=== PATIENT | male | born 1975 | race Caucasian/White ===

== ENCOUNTER 2022-03-10 10:03 | Emergency (ER) | payer BC, SELFPAY ==
--- NOTE | 2022-03-10 10:24 | ED.URI ---
HPI - URI/Sore Throat General Chief Complaint: Upper Respiratory Infection Stated Complaint: sorethroat,chest congestion,bodyache Time Seen by Provider: 03/10/22 10:50 Source: patient and RN notes reviewed Mode of arrival: ambulatory Limitations: no limitations History of Present Illness HPI Narrative: 46-year-old male presents with concern for cough, body aches, sore throat, chest congestion. Reports symptoms started 4 days ago. Reports his mother is positive for COVID, he had a negative COVID test yesterday. Reports he was recently at his father's around many people. Reports he has been taking Tylenol for his symptoms. He denies nausea, vomiting, diarrhea, fever, shortness of breath MD elicited complaint: cough and sore throat Related Data Allergies Allergy/AdvReac Type Severity Reaction Status Date / Time Dairy Allergy Mild breathing Uncoded 03/10/22 10:47 problems Review of Systems Review of Systems: CONSTITUTIONAL: Reports malaise. Denies chills, sweats, or fever. EYES: Denies visual changes, redness, or discharge. ENT: Reports rhinorrhea, congestion, and sore throat. Reports sore throat CARDIOVASCULAR: Denies chest pain, palpitations, or edema. RESPIRATORY: Reports cough. Denies dyspnea. GASTROINTESTINAL: Denies abdominal pain, nausea, vomiting, diarrhea SKIN: Denies rash or itching. MUSCULOSKELETAL: Reports myalgia. NEUROLOGIC: Denies headache. All systems reviewed & are unremarkable except as noted in HPI and below [facility] Comments At time of signature, agree with nursing past medical, surgical, social and family history. There is no relevant family history pertinent to the presenting complaint Exam Narrative: GENERAL: Nontoxic-appearing and in no acute distress. HEAD: Normocephalic EYES: PERRLA, conjunctivae clear ENT: Nares clear, clear discharge. Mucous membranes moist. TM pearly brothers with sharp light reflex bilaterally; no tragal tenderness. Oropharynx not erythematous without lesions. Tonsils not enlarged and without exudate, no drooling, no hoarseness, no trismus, uvula midline. NECK: Supple. No lymphadenopathy CHEST: Clear to auscultation, breath sounds equal. No wheezing, rhonchi, rales, or stridor. No respiratory distress, speaks in full sentences. HEART: Regular rate and rhythm. No murmur heard. SKIN: Warm, dry, no rash. NEURO: Alert and oriented x3. PSYCH: Normal mood and affect Course Course Emergency Course: Patient is aware of diagnosis, understands and agrees to treatment plan. Anticipatory guidance given. Patient agrees to follow-up as directed and is aware of reasons to seek care at the emergency department. Portions of this record may have been created with voice recognition software Level of Care: Express Care Visit Vital Signs Vital signs: Reviewed. MDM - URI/Sore Throat MDM Narrative Medical decision making narrative: Differential diagnosis considered: Rodriguez virus, strep pharyngitis, allergic rhinitis, upper respiratory tract infection, sinusitis, rhinosinusitis, nasopharyngitis. viral pharyngitis, otitis media, otitis externa, pneumonia, bronchitis, viral cough syndrome, viral syndrome, and influenza. Exam findings show no acute concerns or changes; patient is non-toxic appearing and is in no distress. Patient is appropriate for outpatient treatment and follow-up. Lab Data Attestation: I reviewed the patient's lab results. Critical Care Time Critical Care Time Critical Care Time: No Discharge Plan Discharge Clinical Impression: Acute viral syndrome Patient Disposition: Home, Self-Care Condition: Stable Instructions: Viral Syndrome (ED) Additional Instructions: Your rapid strep swab was negative today at [facility]. A throat culture will be sent to the laboratory for further testing. If the test is positive, you will receive a phone call within 48 hours and an appropriate antibiotic will be initiated at that time. -Your symptoms are likely caused by a
[2022-03-10 10:35] VITALS: BP 150/79; PULSE 86; RESP 18; TEMP 37.6; O2SAT 99
== END 2022-03-10 11:21 | disposition home or self-care (01) ==
PROVIDERS: Emergency Provider Nurse Practitioner; PCP Family Medicine
DX: B34.9 Viral infection, unspecified (principal); Z20.822 Contact with and (suspected) exposure to COVID-19
CPT/HCPCS: 87081; 87426; 87880; 99213; C9803; G0463

== ENCOUNTER 2022-06-14 00:53 | Day surgery (SDC) | payer BC, SELFPAY ==
[2022-06-03 14:12] VITALS: BMI 22.5
[2022-06-14 06:50] VITALS: BP 128/84; PULSE 61; RESP 20; TEMP 36.3; O2SAT 100; BMI 22.6
[2022-06-14] MEDS: LACTATED RINGERS 1,000 ML 150 ML IV CONT (06:57)
--- NOTE | 2022-06-14 07:38 | P.PNAN_ITS ---
Anes - Initial Pre Proc Eval Procedure: Operation Date: 06/14/22 08:00 Proposed Procedures p Screening Colonoscopy - Fredrick Massey MD Date/Time: 06/14/22 07:38 Surgeon: Fredrick Massey MD Pre Op Diagnosis: neoplasm screening Patient Data Age: 47 Gender: M Height: 1.91 m Weight: 82 kg Last Vital Signs Temp 97.3 F L 06/14/22 06:50 Pulse 61 06/14/22 06:50 Resp 20 06/14/22 06:50 BP 128/84 06/14/22 06:50 Pulse Ox 100 06/14/22 06:50 O2 Del Method Room Air 06/14/22 06:50 Allergies Allergy/AdvReac Type Severity Reaction Status Date / Time Dairy Allergy Mild breathing Uncoded 06/14/22 06:46 problems Home Medications Medication Instructions Recorded Confirmed Type peg 3350-electrolytes 236 240 ml PO Q10M #4,000 mL 04/26/22 06/03/22 Rx gram-22.74 gram-6.74 gram-5.86 gram solution (Golytely) Patient hx anesthesia problems: none Family hx anesthesia problems: none Results Review: All pre-operative results and documents have been reviewed as part of the pre- operative evaluation. Anes - Eval Final PreProcedure Day of Procedure 06/14/22 07:38 Patient weight: normal Heart: regular rate and rhythm Lungs: clear to auscultation Airway: Mallampati scale class II Neurological: alert and oriented Last oral intake: >/= 8 hours ASA classification: I Emergent: no Anesthetic plan: proceed Anesthesia type and monitoring: general GIVS and standard monitoring Results Review: All pre-operative results and documents have been reviewed as part of the pre- operative evaluation. Informed Consent: The patient's anesthetic plan and its attendant risks and benefits were discussed with the patient/family/POA. Questions were solicited and answers provided to the satisfaction of the patient/family/POA.
--- NOTE | 2022-06-14 07:46 | P.HP_ITS ---
H&P: HPI History of Present Illness Date/Time: 06/14/22 07:46 Chief Complaint: Neoplasia screening. Narrative: This is a 47-year-old white male patient presents for screening colonoscopy. Patient reports his current weight appetite and bowel movements are normal. Patient denies abdominal pain. He has had no bleeding. Family history is significant for grandparent with colon cancer. Patient presents today for screening colonoscopy. Review of Systems Review of Systems: Review of systems noncontributory. Meds Home Medications and Allergies Home Medications Medication Instructions Recorded Confirmed Type peg 3350-electrolytes 236 240 ml PO Q10M #4,000 mL 04/26/22 06/03/22 Rx gram-22.74 gram-6.74 gram-5.86 gram solution (Golytely) Allergies Allergy/AdvReac Type Severity Reaction Status Date / Time Dairy Allergy Mild breathing Uncoded 06/14/22 06:46 problems Vital Signs Vital Signs - 24 hr 06/14/22 06:50 Temperature 97.3 F L Pulse Rate 61 Respiratory Rate 20 Blood Pressure 128/84 Pulse Oximetry 100 Oxygen Delivery Room Air Exam Narrative: Physical exam reveals patient to be alert. Vital signs stable. HEENT exam is unremarkable. Patient is anicteric. Lungs are clear to auscult ation and percussion. Heart is without murmur or extra sounds. Abdomen bowel sounds are present soft nontender with no organomegaly. Digital external rectal exam is normal. Assessment and Plan Assessment and plan (1) Encounter for screening colonoscopy: Code(s): Z12.11 - Encounter for screening for malignant neoplasm of colon Status: Acute Assessment and Plan: Patient presents today for screening colonoscopy. Plan further recommendations will be given after endoscopy.
[2022-06-14 08:14] VITALS: BP 120/79; PULSE 68; RESP 23; O2SAT 100
[2022-06-14 08:24] VITALS: BP 119/77; PULSE 76; RESP 22; O2SAT 100
[2022-06-14 08:34] VITALS: BP 121/82; PULSE 67; RESP 20; O2SAT 100
== END 2022-06-14 08:38 | disposition home or self-care (01) ==
PROVIDERS: PCP Family Medicine; Visit Provider Internal Medicine Gastroenterology
PROC: 0DJD8ZZ Inspection of Lower Intestinal Tract, Via Natural or Artificial Opening Endoscopic (ICD-10-PCS; CPT 45378; principal; 2022-06-14 08:00)
DX: Z12.11 Encounter for screening for malignant neoplasm of colon (principal)
CPT/HCPCS: 45378; J2704; J7120

== ENCOUNTER 2024-03-23 19:25 | Inpatient (IN) | payer BC, SELFPAY ==
[2024-03-23] VITALS (8 sets, daily range): BP systolic 146–170; BP diastolic 80–89; PULSE 51–59; RESP 13–20; TEMP 36.4–36.5; O2SAT 97–100
--- NOTE | ~2024-03-23 | XR_ITS ---
EXAMINATION: XR chest 2V Exam Date/Time: 03/23/2024 19:45 CDT HISTORY: cp INTERMITTENT X 1 WEEK WORSE WITH EXERTION Comparison: 04/08/2010. RESULT: Lines, tubes, and devices: None. Lungs and pleura: Clear. Cardiomediastinal silhouette: Stable. Other: No acute osseous or upper abdominal finding. IMPRESSION: No acute cardiopulmonary process. Reviewed, dictated and finalized at location K.
--- NOTE | 2024-03-23 19:26 | ECG_ITS ---
SEE SCANNED COPY FOR CONFIRMED REPORT MTDD
[2024-03-23 19:51] LABS: Basophils Absolute Auto 0.1 K/mm3 (0.0-0.1); Basophils Percent Auto 0.7 % (0.2-1.2); Eosinophils Absolute Auto 0.1 K/mm3 (0-0.3); Hematocrit 40.3 % (42.0-52.0); Immature Granulocyte Absolute 0.02 K/mm3 (0.00-0.031); Immature Granulocyte Percent A 0.3 % (0-0.5); Lymphocytes Absolute Auto 2.42 K/mm3 (0.9-3.2); Lymphocytes Percent Auto 35.4 % (18.3-44.2); Mean Corpuscular HGB Conc 34.7 g/dl (32-36); Mean Corpuscular Hemoglobin 30.6 pg (26-34); Monocytes Absolute Auto 0.6 K/mm3 (0.1-0.6); Monocytes Percent Auto 8.8 % (2.6-8.5); Neutrophils Absolute Auto 3.6 K/mm3 (1.3-6.7); Neutrophils Percent Auto 52.8 % (45.5-73.1); Platelet Count Result 272 k/mm3 (150-375); Red Blood Count 4.58 M/mm3 (4.6-6.20); Red Cell Distribution Width 12.5 % (11.5-14.5); White Blood Count 6.8 K/mm3 (4.5-10.0)
[2024-03-23 20:00] LABS: Alanine Aminotransferase 22 U/L (6-50); Albumin Level 4.6 g/dL (3.5-5.1); Alkaline Phosphatase 78 U/L (38-126); Anion Gap 9 mmol/L (4-12); Aspartate Amino Transferase 29 U/L (17-59); Bilirubin,Total 0.7 mg/dL (0.2-1.3); Blood Urea Nitrogen 13 mg/dL (9-20); Calcium 9.2 mg/dL (8.4-10.2); Carbon Dioxide 27 mmol/L (22-30); Chloride 103 mmol/L (98-107); Estimated CRCL calculation 79 ml/min; Estimated Glomerular Filt Rate > 60; Glucose 97 mg/dL (65-110); Lipase 159 U/L (23-300); Potassium 3.6 mmol/L (3.4-5.0); Sodium 139 mmol/L (137-145)
[2024-03-23 20:02] LABS: Prothrombin Time 13.8 Seconds (11.1-14.7)
[2024-03-23 20:03] LABS: Partial Thromboplastin Time 34.1 Seconds (22.3-36.8)
[2024-03-23 20:24] LABS: Troponin I 0.158 ng/mL (0.000-0.034)
--- NOTE | 2024-03-23 20:30 | ED.CHESTPAIN ---
HPI - Chest Pain General Chief Complaint: Chest Pain Stated Complaint: chest pain Time Seen by Provider: 03/23/24 20:30 History of Present Illness HPI narrative: Patient is a 48-year-old male with no significant past medical history here today with chest pain. Patient notes that over the last 1 week he has had episodic chest pain which seems to occur with exertion. He notes that it is present diffusely throughout his anterior chest and occasionally radiates into his left shoulder. Today just prior to arrival he attempted to go for a walk after dinner and started experiencing his chest pain once again, the pain seemed worse than it had been on previous episodes and this prompted him to come into the emergency department for evaluation. He denies any associated diaphoresis, nausea, lightheadedness. He notes chest tightness but does not feel short of breath. He denies any calf pain or leg swelling. No recent travel, no recent surgeries. No personal history of heart issues however his father did have a heart attack in his early 60s. He does admit that he has not seen a doctor for a couple of years but before that was having regular primary care visits. Related Data Allergies Allergy/AdvReac Type Severity Reaction Status Date / Time Dairy Allergy Mild breathing Uncoded 10/21/23 09:24 problems Review of Systems Review of Systems: All systems reviewed & are unremarkable except as noted in HPI and below Exam Narrative: GENERAL: Well-appearing, well-nourished, and in no acute distress. HEAD: Normocephalic, atraumatic. EYES: PERRLA and EOMI. ENT: Nares clear. Mucous membranes moist. NECK: Supple. CHEST: Clear to auscultation. No respiratory distress. HEART: Regular rate and rhythm. Normal peripheral pulses. ABDOMEN: Soft, nontender, nondistended. EXTREMITIES: Normal range of motion. No edema. No calf tenderness. SKIN: Warm, dry, no rash. NEURO: No focal deficits. Alert and oriented x3. PSYCH: Normal mood and affect. Course Course Emergency Course: Chart review performed, patient here with intermittent chest pressure x1 week, worse at the light exercise, pain radiates into his left arm occasionally, triage vitals show hypertension, otherwise within normal limits. CBC unremarkable, electrolytes within normal limits, creatinine is 1.2, no prior for comparison. Troponin is elevated at 0.158. Patient seen evaluated, nontoxic appearing, no active chest pain at this time. Concerning story for anginal pain throughout this week and he has now had an elevated troponin. EKG is reassuring. Will continue to trend troponins, repeat EKGs, will additionally send a D-dimer although this is low on my differentials. Will start heparin gtt. Patient is advised to notify us should his chest pain return. ASA given. Spoke with Dr. Damon who accepts the patient for admission. Spoke with Dr. Lugo from Cardiology who recommends statin and NPO at midnight along with aspirin and heparin. Vital Signs Vital signs: Vital Signs Temperature 97.6 F 03/23/24 19:36 Pulse Rate 58 L 03/23/24 19:36 Respiratory Rate 20 03/23/24 19:36 Blood Pressure 165/86 H 03/23/24 19:36 Pulse Oximetry 100 03/23/24 19:36 Oxygen Delivery Room Air 03/23/24 19:36 Temperature 97.6 F 03/23/24 19:36 Pulse Rate 56 L 03/23/24 23:02 Respiratory Rate 20 03/23/24 23:02 Blood Pressure 160/89 H 03/23/24 23:02 Pulse Oximetry 99 03/23/24 23:02 Oxygen Delivery Room Air 03/23/24 20:47 MDM - Chest Pain Lab Data 03/23/24 19:36 03/23/24 19:36 Labs: Lab Results 03/23/24 Range/Units 19:36 WBC 6.8 (4.5-10.0) K/mm3 RBC 4.58 L (4.6-6.20) M/mm3 Hgb 14.0 (14.0-18.0) g/dL Hct 40.3 L (42.0-52.0) % MCV 88.0 (80-100) fl MCH 30.6 (26-34) pg MCHC 34.7 (32-36) g/dl RDW 12.5 (11.5-14.5) % Plt Count 272 (150-375) k/mm3 MPV 10.0 (7.4-10.4) fl Immature Gran % (Auto) 0.3 (0-0.5)
[2024-03-23] MEDS: ASPIRIN 81 MG CHEWABLE TABLET 324 MG PO (20:38)
[2024-03-23] MEDS: HEPARIN SODIUM 5,000 UNITS/ML VIAL 4000 UNITS IV PUSH (21:33)
[2024-03-23] MEDS: HEPARIN SOD/D5W 100 UNITS/ML 25,000 UNITS/250 ML BAG 10 UNITS IV CONT (21:33)
[2024-03-23 21:48] LABS: D Dimer 0.38 ug/mL (<0.48)
[2024-03-23] MEDS: ATORVASTATIN 20 MG TABLET PO (23:01)
[2024-03-23 23:10] LABS: Troponin I 0.225 ng/mL (0.000-0.034)
--- NOTE | 2024-03-23 23:26 | ADMGEN ---
This patient, Albert Dumont Jr., was admitted to IMU Room 200-01. Patient/family oriented to hospital policies and general routines including ID bracelet, bed and alarms, visiting hours, pain management, procedures, bathroom and other care routines, personal items, smoking policy, room service/diet, and visiting hours. Information on how to activate the Rapid Response Team has been discussed. Patient/Family are encouraged to report perceived risks to care and to ask questions if they do not understand what they are told or what they should do.
[2024-03-24] VITALS (31 sets, daily range): BP systolic 127–164; BP diastolic 60–95; PULSE 45–81; RESP 14–20; TEMP 36.1–37; O2SAT 93–100; BMI 23.3
[2024-03-24 01:54] LABS: Cholesterol 165 mg/dL (0-200); HDL Direct 33 mg/dL; Triglycerides 354 mg/dL (<150)
[2024-03-24 02:05] LABS: LDL Cholesterol Direct 87 mg/dL
[2024-03-24 02:20] LABS: Troponin I 0.283 ng/mL (0.000-0.034)
[2024-03-24 03:51] LABS: Basophils Percent Auto 0.6 % (0.2-1.2); Eosinophils Absolute Auto 0.2 K/mm3 (0-0.3); Hematocrit 38.4 % (42.0-52.0); Hemoglobin 13.1 g/dL (14.0-18.0); Immature Granulocyte Absolute 0.02 K/mm3 (0.00-0.031); Immature Granulocyte Percent A 0.3 % (0-0.5); Lymphocytes Absolute Auto 2.53 K/mm3 (0.9-3.2); Lymphocytes Percent Auto 37.8 % (18.3-44.2); Mean Corpuscular HGB Conc 34.1 g/dl (32-36); Mean Corpuscular Hemoglobin 29.7 pg (26-34); Mean Corpuscular Volume 87.1 fl (80-100); Mean Platelet Volume 10.1 fl (7.4-10.4); Monocytes Absolute Auto 0.5 K/mm3 (0.1-0.6); Monocytes Percent Auto 7.9 % (2.6-8.5); Neutrophils Absolute Auto 3.4 K/mm3 (1.3-6.7); Neutrophils Percent Auto 50.4 % (45.5-73.1); Platelet Count Result 238 k/mm3 (150-375); Red Blood Count 4.41 M/mm3 (4.6-6.20); Red Cell Distribution Width 12.4 % (11.5-14.5); White Blood Count 6.7 K/mm3 (4.5-10.0)
[2024-03-24 04:03] LABS: Partial Thromboplastin Time 87.7 Seconds (22.3-36.8)
--- NOTE | 2024-03-24 06:00 | ECHO_ITS ---
Patient Info Name: Albert Dumont Age: 48 years : 1975 Gender: Male Ht: 75 in Wt: 189 lbs BSA: 2.13 m2 HR: 52 bpm BP: 150 / 60 mmHg Heart Rhythm: Sinus Rhythm Technical Quality: Good Exam Date: 03/24/2024 8:08 AM Exam Location: Echo Lab Patient Status: Inpatient Admit Date: 03/23/2024 Staff Ordering Physician: Lorie Cast MD Water Filterer: Jonatan Morton RDCS Attending Provider: Lisa Damon DO Exam Type: CA echo doppler color flow Study Info Indications I21.4 - Non-ST elevation (NSTEMI) myocardial infarction Complete two-dimensional, color flow and Doppler transthoracic echocardiogram is performed. Summary 1. Complete two-dimensional, color flow and Doppler transthoracic echocardiogram is performed. 2. Left ventricular chamber dimension is normal. 3. Left ventricular systolic function is normal, estimated at 55-60%. 4. There is mildly increased left ventricular wall thickness. 5. The left ventricular diastolic function is normal. 6. The basal inferoseptal, and mid inferoseptal are hypokinetic. 7. There is mild aortic valve regurgitation. 8. There is mild mitral valve regurgitation. 9. There is mild tricuspid valve regurgitation. Left Ventricle Left ventricular chamber dimension is normal. Left ventricular systolic function is normal, estimated at 55-60%. There is mildly increased left ventricular wall thickness. The left ventricular diastolic function is normal. The basal inferoseptal, and mid inferoseptal are hypokinetic. All other gamez appear normal. Right Ventricle Right ventricular chamber dimension is normal. Right ventricular systolic function is normal. Left Atria Left atrial chamber dimension is normal. Right Atria Right atrial chamber dimension is normal. Atrial Septum Intact interatrial septum visualized by color flow imaging. Aortic Valve The aortic valve is trileaflet. There is mild aortic valve sclerosis. There is no aortic valve stenosis. There is mild aortic valve regurgitation. Pulmonic Valve The pulmonic valve is normal. There is no pulmonic valve stenosis. There is trace pulmonic regurgitation. Mitral Valve The mitral valve has normal leaflets. There is no mitral valve stenosis. There is mild mitral valve regurgitation. Tricuspid Valve The tricuspid valve leaflets are normal. There is no significant tricuspid valve stenosis. There is mild tricuspid valve regurgitation. No pulmonary hypertension, estimated pulmonary arterial systolic pressure is 12 mmHg. Pericardium/Pleural The pericardium appears normal. There is no pericardial effusion. Inferior Vena Cava Normal inferior vena cava with >50% collapse upon inspiration consistent with normal right atrial pressure, 5 mmHg. Aorta The aortic root size at the sinus of Valsalva is normal. Left Ventricular Outflow Tract Name Value Normal LVOT 2D LVOT Diameter 2.1 cm LVOT Doppler LVOT Peak Gradient 7 mmHg LVOT Mean Gradient 4 mmHg LVOT VTI 27 cm LVOT VTI/AV VTI Ratio 1.0 LVOT Stroke Volume 88 ml LVOT CO
[2024-03-24 10:21] LABS: Partial Thromboplastin Time 65.4 Seconds (22.3-36.8)
[2024-03-24 10:35] LABS: Hemoglobin A1C 5.2 % (<5.7)
--- NOTE | 2024-03-24 10:39 | PM.IMHP ---
H&P: HPI History of Present Illness Date/Time: 03/24/24 10:39 Chief Complaint: Chest pain Narrative: A pleasant 48-year-old male with no past medical history. Last saw PCP couple years ago. Reports tightness in the chest which is exacerbated by exertion and relieved by rest. Occasionally radiates to his left shoulder. Denies acid reflux denies shortness of breath diaphoresis nausea or lightheadedness. Father had a heart attack in his 60s. Denies smoking or alcohol use. Denies illicit drug use. Review of Systems Review of Systems: All systems reviewed & are unremarkable except as noted in HPI and below (Subjective) [facility] Social History Social History (System 10/21/23 @ 09:24 by Ronnie Ly) Smoking status: Never smoker Alcohol intake: current Drinks per week: 1 Substance use: never Substance use type: does not use Do You Feel Safe in your Home?: Yes Lack of Transportation: No Lack of Food: Never True Current Housing: I Have Housing Concerned About Future Housing: No Difficulty Paying Gas/Electric Bills: No Difficulty Paying for Meds: No Currently Unemployed: No Education: Master's Degree or Higher Difficulty w/ Childcare or Family Care: No Spiritual care concerns: No Meds Home Medications and Allergies Home Medications Medication Instructions Recorded Confirmed Type No Home Medications 03/24/24 03/24/24 History Allergies Allergy/AdvReac Type Severity Reaction Status Date / Time Dairy Allergy Mild breathing Uncoded 10/21/23 09:24 problems Vital Signs Vital Signs - 24 hr 03/23/24 19:36 03/23/24 20:47 03/23/24 20:35 Temperature 97.6 F Pulse Rate 58 L 51 L Respiratory Rate 20 18 Blood Pressure 165/86 H 167/80 H Pulse Oximetry 100 98 100 Oxygen Delivery Room Air Room Air 03/23/24 21:30 03/23/24 22:10 03/23/24 22:32 Temperature Pulse Rate 59 L 52 L 53 L Respiratory Rate 15 18 13 Blood Pressure 162/89 H 150/80 H 146/82 H Pulse Oximetry 100 99 98 Oxygen Delivery 03/23/24 23:02 03/23/24 23:12 03/24/24 00:00 Temperature 97.7 F Pulse Rate 56 L 57 L 46 L Respiratory Rate 20 20 Blood Pressure 160/89 H 170/83 H Pulse Oximetry 99 97 Oxygen Delivery 03/24/24 01:26 03/24/24 04:00 03/24/24 04:00 Temperature Pulse Rate 48 L 45 L 45 L Respiratory Rate 20 Blood Pressure Pulse Oximetry 97 Oxygen Delivery Room Air 03/24/24 04:00 03/24/24 05:42 03/24/24 07:44 Temperature 97.0 F L 98.1 F Pulse Rate 48 L 52 L 58 L Respiratory Rate 20 19 Blood Pressure 150/60 H 127/76 Pulse Oximetry 100 99 Oxygen Delivery 03/24/24 08:00 03/24/24 08:00 03/24/24 10:00 Temperature Pulse Rate 57 L 52 L Respiratory Rate Blood Pressure Pulse Oximetry Oxygen Delivery Room Air Exam Const: General: comfortable and no acute distress Other: A&O x3 Eyes: Pupils: Equal, round and reactive pupils present Neck: Neck: supple Resp: Effort & Inspection: normal respiratory effort Auscultation: clear to auscultation bilaterally Cardio: Rate: regular rate Rhythm: regular rhythm Heart sounds: no gallops, no murmurs and no rubs Other: No reproducible chest pain GI: GI Palp: Yes Soft to palpation and No Tenderness to palpation present (GI) Extrem: General: no edema H&P: Results Labs Labs: Short CBC 03/23/24 03/24/24 Range/Units 19:36 03:40 WBC 6.8 6.7 (4.5-10.0) K/mm3 Hgb 14.0 13.1 L (14.0-18.0) g/dL Hct 40.3 L 38.4 L (42.0-52.0) % Plt Count 272 238 (150-375) k/mm3 BMP 03/23/24 19:36 Sodium 139 Potassium 3.6 Chloride 103 Carbon Dioxide 27 BUN 13 Creatinine 1.20 Glucose 97 Calcium 9.2 Cardiac Enzymes 03/23/24 03/23/24 03/24/24 Range/Units 19:36 22:21 01:36 Troponin I 0.158 H* 0.225 H* D 0.283 H* D (0.000-0.034) ng/mL Liver Function 03/23/24 Range/Units 19:36 Total Bilirubin 0.7 (0.2-1.3) mg/dL AST 29
[2024-03-24] MEDS: ASPIRIN 81 MG ENTERIC TABLET PO (10:57)
[2024-03-24] MEDS: ATORVASTATIN 40 MG TABLET 80 MG PO (10:57)
[2024-03-24] MEDS: HEPARIN SODIUM 5,000 UNITS/ML VIAL 3500 UNITS IV PUSH (10:58)
--- NOTE | 2024-03-24 14:13 | WPDMODSED ---
Moderate Sedation Note-Pt Data Patient Data Diagnosis: NSTEMI Present Complaint: NSTEMI Procedure to be performed/Plan: Coronary angiography, left heart cath, +/- PCI Allergies Allergy/AdvReac Type Severity Reaction Status Date / Time Dairy Allergy Mild breathing Uncoded 10/21/23 09:24 problems Home Medications Medication Instructions Recorded Confirmed Type No Home Medications 03/24/24 03/24/24 History Current Medications: Active Medications Aspirin (Aspirin 81 Mg Enteric Tablet) 81 mg PO QAM [facility] Last Admin: 03/24/24 10:57 Dose: 81 mg Atorvastatin Calcium (Atorvastatin 40 Mg Tablet) 80 mg PO DAILY [facility] Last Admin: 03/24/24 10:57 Dose: 80 mg Heparin Sodium (Porcine) (Heparin Sodium 5,000 Units/Ml Vial) 4,000 units IV PUSH PRN PRN PRN Reason: aPTT less than 55 seconds Heparin Sodium (Porcine) (Heparin Sodium 5,000 Units/Ml Vial) 3,500 units IV PUSH PRN PRN PRN Reason: aPTT 55 - 70 seconds Last Admin: 03/24/24 10:58 Dose: 3,500 units Heparin Sodium/Dextrose (Heparin Sodium/D5w 100 Units/Ml) 25,000 units in 250 mls @ 12 mls/hr IV CONT .[id number] [facility]; Protocol Last Titration: 03/24/24 12:34 Dose: 1,200 units/hr, 12 mls/hr Perflutren Lipid Microsphere (Perflutren Lipid Microspheres 1.5 Ml Vial Diluted To 10 Ml Total Volume) 0 ml IV PUSH ONCE PRN; Protocol PRN Reason: adequate visualization Stop: 03/26/24 22:31 Sedation/Anesthesia: No previous sedation/anesthesia problems (including family history). [facility] Social History Social History Smoking status: Never smoker Alcohol intake: current Drinks per week: 1 Substance use: never Substance use type: does not use Do You Feel Safe in your Home?: Yes Lack of Transportation: No Lack of Food: Never True Current Housing: I Have Housing Concerned About Future Housing: No Difficulty Paying Gas/Electric Bills: No Difficulty Paying for Meds: No Currently Unemployed: No Education: Master's Degree or Higher Difficulty w/ Childcare or Family Care: No Spiritual care concerns: No Mod Sed Physical Exam Physical Exam Pre Procedural Exam: Normal: Appearance, Lungs, Heart Rate, Heart Rhythm, Neuro Exam, Abdomen and Extremities Hours since solid foods: 12 Hours since liquid intake: 12 Mallampati Classification: class II Internal Medicine - PN: Obj Da Vital Signs Vital Signs: Vital Signs - 24 hr 03/23/24 19:36 03/23/24 20:47 03/23/24 20:35 Temperature 36.4 C Pulse Rate 58 L 51 L Respiratory Rate 20 18 Blood Pressure 165/86 H 167/80 H Pulse Oximetry 100 98 100 Oxygen Delivery Room Air Room Air 03/23/24 21:30 03/23/24 22:10 03/23/24 22:32 Temperature Pulse Rate 59 L 52 L 53 L Respiratory Rate 15 18 13 Blood Pressure 162/89 H 150/80 H 146/82 H Pulse Oximetry 100 99 98 Oxygen Delivery 03/23/24 23:02 03/23/24 23:12 03/24/24 00:00 Temperature 36.5 C Pulse Rate 56 L 57 L 46 L Respiratory Rate 20 20 Blood Pressure 160/89 H 170/83 H Pulse Oximetry 99 97 Oxygen Delivery 03/24/24 01:26 03/24/24 04:00 03/24/24 04:00 Temperature Pulse Rate 48 L 45 L 45 L Respiratory Rate 20 Blood Pressure Pulse Oximetry 97 Oxygen Delivery Room Air 03/24/24 04:00 03/24/24 05:42 03/24/24 07:44 Temperature 36.1 C L 36.7 C Pulse Rate 48 L 52 L 58 L Respiratory Rate 20 19 Blood Pressure 150/60 H 127/76 Pulse Oximetry 100 99 Oxygen Delivery 03/24/24 08:00 03/24/24 08:00 03/24/24 10:00 Temperature Pulse Rate 57 L 52 L Respiratory Rate Blood Pressure Pulse Oximetry Oxygen Delivery Room Air 03/24/24 11:13 03/24/24 12:00 03/24/24 12:00 Temperature 36.5 C Pulse Rate 55 L 76 Respiratory Rate 18 Blood Pressure 135/84 Pulse Oximetry 100 Oxygen Delivery Room Air Intake/Output Intake/Output: Intake & Output 03/21/24 03/22/24 03/23/24 03/24/24 23:59 23:59 23:59 23:59 I
--- NOTE | 2024-03-24 15:30 | PM.CNCAR ---
Assessment and Plan Assessment and plan (1) Non-ST elevation [place] (NSTEMI): Code(s): I21.4 - Non-ST elevation (NSTEMI) myocardial infarction Status: Acute Assessment and Plan: Given NSTEMI, recommended cardiac catheterization. Discussed procedure with the patient, including indication for procedure, procedure details, risks vs benefits, etc. Patient agreeable to proceed. Underwent C 03/24 which showed significant proximal LAD stenosis s/p successful PCI with СЕРГЕЙ x 1. Echocardiogram shows LVEF 55-60%, hypokinesis of the basal inferoseptum and mid inferoseptum. Patient loaded with ASA 324mg x 1. Continue ASA 81mg once daily indefinitely. Loaded with Brilinta 180mg x 1 in the laboratory veterinarian. Continue Brilinta 90mg BID for at least 1 year. Started on high-intensity statin. Referral to cardiac rehab placed. Anticipate discharge home tomorrow if doing well. Will arrange outpatient follow up with us. Recommendations and plan discussed with Hospitalist. History of Present Illness History of Present Illness Consult date/time: 03/24/24 15:30 Requesting physician: Lorie Cast MD Consult reason: chest pain Reason For Visit: NSTEMI Narrative: We are consulted for NSTEMI. This is a 48 year old male with no past medical history, does not take any medications at home who presented with exertional chest pain that has been occurring for the past week. Happens a few minutes after starting exertion, relieved with rest. Feels diffuse chest tightness with radiation to left shoulder. Father had [place] in his 60s. No tobacco use. No recreational drug use. Works as a software controls engineer. EKGs show sinus rhythm, incomplete right bundle branch block, T-wave inversions in the anterior leads. Troponins are elevated at 0.158, 0.225, 0.283. CXR negative. No prior EKGs available for comparison. He has been started on Heparin drip. Review of Systems Review of Systems: All systems reviewed & are unremarkable except as noted in HPI and below (HPI) [facility] Social History Social History Smoking status: Never smoker Alcohol intake: current Drinks per week: 1 Substance use: never Substance use type: does not use Do You Feel Safe in your Home?: Yes Lack of Transportation: No Lack of Food: Never True Current Housing: I Have Housing Concerned About Future Housing: No Difficulty Paying Gas/Electric Bills: No Difficulty Paying for Meds: No Currently Unemployed: No Education: Master's Degree or Higher Difficulty w/ Childcare or Family Care: No Spiritual care concerns: No Meds Home Medications and Allergies Home Medications Medication Instructions Recorded Confirmed Type No Home Medications 03/24/24 03/24/24 History Allergies Allergy/AdvReac Type Severity Reaction Status Date / Time Dairy Allergy Mild breathing Uncoded 10/21/23 09:24 problems Vital Signs Vital Signs - 24 hr 03/23/24 19:36 03/23/24 20:47 03/23/24 20:35 Temperature 36.4 C Pulse Rate 58 L 51 L Respiratory Rate 20 18 Blood Pressure 165/86 H 167/80 H Pulse Oximetry 100 98 100 Oxygen Delivery Room Air Room Air 03/23/24 21:30 03/23/24 22:10 03/23/24 22:32 Temperature Pulse Rate 59 L 52 L 53 L Respiratory Rate 15 18 13 Blood Pressure 162/89 H 150/80 H 146/82 H Pulse Oximetry 100 99 98 Oxygen Delivery 03/23/24 23:02 03/23/24 23:12 03/24/24 00:00 Temperature 36.5 C Pulse Rate 56 L 57 L 46 L Respiratory Rate 20 20 Blood Pressure 160/89 H 170/83 H Pulse Oximetry 99 97 Oxygen Delivery 03/24/24 01:26 03/24/24 04:00 03/24/24 04:00 Temperature Pulse Rate 48 L 45 L 45 L Respiratory Rate 20 Blood Pressure Pulse Oximetry 97 Oxygen Delivery Room Air 03/24/24 04:00 03/24/24 05:42 03/24/24 07:44 Temperature 36.1 C L 36.7 C Pulse Rate 48 L 52 L 58 L Respiratory Rate 20 19 Blood Pressure 150/60 H 127/76 Pulse Oximetry 100 99
--- NOTE | 2024-03-24 15:36 | WPDCARDPROC ---
Cardiac Cath Procedure Note Date of procedure:: 03/24/24 Performing physician:: CATHETERIZATION LABORATORY REPORT Procedure Date: 03/24/2024 Travel Services Professional: Dc Sahni M.D., [facility]? Referring Physician: Dc Sahni M.D. ? Anesthesia: Versed and Fentanyl were ordered and given in my presence at 14:12, procedure ended at 15:14. Supervision of nurse monitored moderate sedation with Versed and Fentanyl was provided for 62 minutes. Total of Versed 1mg and Fentanyl 50mcg were administered by the Quality Assurance RN Faiza Simpson. Pre-op Diagnosis: NSTEMI Post-op Diagnosis: 1. Significant proximal LAD stenosis s/p successful PCI with СЕРГЕЙ x 1 2. Left ventricular end-diastolic pressure of 15mmHg Procedure(s): 1. Moderate sedation 2. Ultrasound-guided access of the right radial artery 3. Coronary angiography 4. Left heart catheterization 5. IVUS of the LAD 6. PCI of the proximal LAD with 4.0mm x 18mm Orsiro СЕРГЕЙ (the proximal and mid portion of the stent post-dilated to 4.5mm). Access Site: Right radial artery Brief History and Clinical Indications: Patient is a 48 year old male who is referred for [facility] for NSTEMI. All risks, benefits and alternatives to left heart catheterization with or without percutaneous coronary intervention was discussed at length with the patient. Risk of complications including but not limited to bleeding, infection, arrhythmia, stroke, worsening kidney function, blood loss, groin hematoma, limb loss, emergency coronary artery bypass grafting, and even were discussed with the patient and all questions were answered. The patient understood and wished to proceed. Time out called, patient name, date of , medical record number, allergies, procedure performed, identify Travel Services Professional, patient and staff member concurred with accurate data, procedure carried on. Findings: LEFT HEART CATHETERIZATION FINDINGS: 1. Left main: The left main coronary artery is widely patent without any significant obstructive disease. 2. Left anterior descending: The ostium of the LAD has mild disease. The proximal LAD has a focal 90% stenosis. Distal to this lesion, there is mild disease. There is mild disease in the mid portion of the LAD. 3. Left circumflex: The left circumflex artery and the main marginal branches have mild luminal irregularities without any significant obstructive angiographic disease. The left circumflex is co-dominant. 4. Right coronary artery: The RCA has luminal irregularities without any significant obstructive angiographic disease. The RCA is co-dominant vessel. 5. Left ventricle: A. End-diastolic pressure 15 mmHg. B. LV gram deferred. C. No significant gradient across aortic valve on catheter pullback. Description of Procedure and PCI: Informed consent signed and placed in the chart. Patient transferred to microbiology lab analyst room. Prepped and draped in usual sterile fashion. 2% lidocaine injected subcutaneously in right wrist area. 22-gauge venipuncture catheter used to access the right radial artery under ultrasound guidance. 6-FR slender sheath placed in right radial artery. Nitroglycerine and Verapamil were given intraarterial through the sheath. Versacore wire advanced under fluoroscopy 5F Tig 4 diagnostic catheter engaged Left Main Coronary Artery. 5F Tig 4 diagnostic catheter engaged Right Coronary Artery Multiple orthogonal angiogram obtained and reviewed 5F Tig 4 diagnostic catheter crossed aortic valve to obtain LVEDP, LV angiogram deferred. Angiomax was used for anticoagulation. 6F CLS 3.0 guide catheter was used to intubate the left main. 0.014 [place] coronary wire was passed in to the distal LAD. The lesion was pre-dilated with a 2.5 mm x 15 mm balloon inflated to high FRANKIE. IVUS catheter advanced distal to the lesion, reference measurements obtained. A 4.0 mm x 18 mm infibondiro СЕРГЕЙ was successfully deployed into proximal LAD. Intracoronary NTG was administered. IVUS catheter advanced dis
--- NOTE | 2024-03-24 15:45 | ECG_ITS ---
[facility] [address] Test Date: 2024-03-24 Pat Name: Albert Dumont Department: Room: 200 Gender: M Grain Scooper: TOM : 1975 Requested By: Dc Osorio Order Number: [id number] Jesus MD: Nick Brice D.O. Measurements Intervals [place] Rate: 47 P: 59 CT: 173 QRS: 7 QRSD: 97 T: 31 QT: 490 QTc: 437 Interpretive Statements SINUS BRADYCARDIA INCOMPLETE RIGHT BUNDLE BRANCH BLOCK MODERATE T-WAVE ABNORMALITY, CONSIDER ANTERIOR ISCHEMIA ABNORMAL ECG No previous ECG available for comparison Electronically Signed On 03-25-2024 08:54:34 CDT by Nick Brice D.O.
[2024-03-24] MEDS: SODIUM CHLORIDE 0.9% IV 1,000 ML 125 ML IV CONT (18:15)
[2024-03-24] MEDS: ACETAMINOPHEN 325 MG TABLET 650 MG PO (18:50)
[2024-03-24] MEDS: TICAGRELOR 90 MG TABLET PO (21:04)
[2024-03-25] VITALS (10 sets, daily range): BP systolic 125–147; BP diastolic 67–76; PULSE 48–67; RESP 18; TEMP 36.4–36.8; O2SAT 96–98
[2024-03-25] MEDS: ACETAMINOPHEN 325 MG TABLET 650 MG PO (05:34)
[2024-03-25] MEDS: TICAGRELOR 90 MG TABLET PO (08:28)
[2024-03-25] MEDS: ATORVASTATIN 40 MG TABLET 80 MG PO (08:29)
[2024-03-25] MEDS: ASPIRIN 81 MG ENTERIC TABLET PO (08:29)
--- NOTE | 2024-03-25 09:25 | PM.PNCARD ---
Progress Note: A&P Assessment and Plan (1) Non-ST elevation [place] (NSTEMI): Code(s): I21.4 - Non-ST elevation (NSTEMI) myocardial infarction Status: Acute Assessment and Plan: Given NSTEMI, recommended cardiac catheterization. Discussed procedure with the patient, including indication for procedure, procedure details, risks vs benefits, etc. Patient agreeable to proceed. Underwent C 03/24 which showed significant proximal LAD stenosis s/p successful PCI with СЕРГЕЙ x 1. Echocardiogram shows LVEF 55-60%, hypokinesis of the basal inferoseptum and mid inferoseptum. Patient loaded with ASA 324mg x 1. Continue ASA 81mg once daily indefinitely. Loaded with Brilinta 180mg x 1 in the orthodontic laboratory technician. Continue Brilinta 90mg BID for at least 1 year. Started on high-intensity statin. Referral to cardiac rehab placed. Okay to discharge home. Will arrange outpatient follow up with us. Recommendations and plan discussed with Hospitalist. Subjective Date/time seen: 03/25/24 09:25 Interval history: Reason for visit: NSTEMI HPI: We are consulted for NSTEMI. This is a 48 year old male with no past medical history, does not take any medications at home who presented with exertional chest pain that has been occurring for the past week. Happens a few minutes after starting exertion, relieved with rest. Feels diffuse chest tightness with radiation to left shoulder. Father had [place] in his 60s. No tobacco use. No recreational drug use. Works as a embedded software manager. EKGs show sinus rhythm, incomplete right bundle branch block, T-wave inversions in the anterior leads. Troponins are elevated at 0.158, 0.225, 0.283. CXR negative. No prior EKGs available for comparison. He has been started on Heparin drip. Date of service 03/25: Feeling well this morning. Review of Systems Review of Systems: All systems reviewed & are unremarkable except as noted in HPI and below (HPI) Exam Const: General: comfortable and no acute distress HENMT: Mouth: Yes moist mucous membranes Eyes: General: appearance normal, both eyes and all related structures Sclera: sclerae normal Resp: Effort & Inspection: normal respiratory effort Cardio: Rate: regular rate Rhythm: regular rhythm Skin: General skin exam: normal color Neuro: Speech: normal speech Psych: Mental Status: mental status grossly normal Affect: normal affect Objective Data Vital Signs Vital Signs: Vital Signs - 24 hr 03/24/24 10:00 03/24/24 11:13 03/24/24 12:00 Temperature 36.5 C Pulse Rate 52 L 55 L 76 Respiratory Rate 18 Blood Pressure 135/84 Pulse Oximetry 100 Oxygen Delivery Fraction of Inspired Oxygen 03/24/24 12:00 03/24/24 14:00 03/24/24 15:35 Temperature 36.5 C Pulse Rate 79 46 L Respiratory Rate 16 Blood Pressure 128/79 Pulse Oximetry 98 Oxygen Delivery Room Air Room Air Fraction of Inspired Oxygen 03/24/24 19:20 03/24/24 15:45 03/24/24 16:00 Temperature Pulse Rate 55 L 48 L 56 L Respiratory Rate 18 16 14 Blood Pressure 164/89 H 138/80 141/82 H Pulse Oximetry 98 98 97 Oxygen Delivery Room Air Room Air Room Air Fraction of Inspired Oxygen 03/24/24 16:15 03/24/24 16:30 03/24/24 16:45 Temperature Pulse Rate 56 L 55 L 55 L Respiratory Rate 14 16 16 Blood Pressure 140/81 127/82 139/77 Pulse Oximetry 97 99 98 Oxygen Delivery Room Air Room Air Room Air Fraction of Inspired Oxygen 03/24/24 17:00 03/24/24 17:15 03/24/24 17:30 Temperature Pulse Rate 61 65 58 L Respiratory Rate 14 16 14 Blood Pressure 135/82 153/92 H 145/84 H Pulse Oximetry 99 99 99 Oxygen Delivery Room Air Room Air Room Air Fraction of Inspired Oxygen 03/24/24 17:45 03/24/24 18:00 03/24/24 18:15 Temperature Pulse Rate 64 68 64 Respiratory Rate 18 18 18 Blood Pressure 131/89 147/94 H 149/90 H Pulse Oximetry 99 98 99 Oxygen Delivery Room Air Room Air Room Air Fraction of Inspired Oxygen 03/24/24 18:30 03/24/24 18:45
--- NOTE | 2024-03-25 09:39 | PM.DS ---
DS: Admitting Diagnosis Discharge Date Mar 25 2024 Admitting Diagnosis NSTEMI DS: Discharge Diagnosis Discharge Diagnosis (1) Non-ST elevation [place] (NSTEMI): Code(s): I21.4 - Non-ST elevation (NSTEMI) myocardial infarction Status: Acute DS: Summary Hospital Course Hospital Course: A pleasant 48-year-old male with no past medical history. Previously saw a primary care physician a few years back. He does not take any medications at home. Presented with exertional chest pain occurring for approximately a week. Relieved by rest. Described as chest tightness radiating to left shoulder. He denies excessive alcohol use, tobacco use, recreational drug use. Father had [place] in his 60s on subsequently 2 strokes. Evaluation on presentation demonstrated troponins elevated at 0.158, 0.2-5, 0.283. EKG demonstrating right bundle branch block and T-wave inversions in anterior leads. 03/24/2024 cardiac catheterization for NSTEMI as follows: LEFT HEART CATHETERIZATION FINDINGS: 1. Left main: The left main coronary artery is widely patent without any significant obstructive disease. 2. Left anterior descending: The ostium of the LAD has mild disease. The proximal LAD has a focal 90% stenosis. Distal to this lesion, there is mild disease. There is mild disease in the mid portion of the LAD. 3. Left circumflex: The left circumflex artery and the main marginal branches have mild luminal irregularities without any significant obstructive angiographic disease. The left circumflex is co-dominant. 4. Right coronary artery: The RCA has luminal irregularities without any significant obstructive angiographic disease. The RCA is co-dominant vessel. 5. Left ventricle: A. End-diastolic pressure 15 mmHg. B. LV gram deferred. C. No significant gradient across aortic valve on catheter pullback. Drug-eluting stent x1 placed in the LAD. He did well post catheterization. Echocardiogram demonstrating LVEF 55-60%, hypokinesis of the basal inferior septum and mid inferior septum. Via the meds to beds program he was provided Brilinta prescription. On 03/25/2024 the patient is chest pain-free and stable for discharge to home. He is being arranged for cardiology follow-up. Discussed lifestyle modifications as well and that he should follow up with PCP for regular screening to which he agrees. Adverse effects, risks, benefits discussed with the patient to which he understands agrees. Discharge medications include aspirin 81 mg p.o. q.day, Brilinta 90 mg p.o. b.i.d., atorvastatin 80 mg p.o. q.h.s., referral to cardiac rehab made. Triglycerides 354, cholesterol 165, LDL 87, HDL 33, TSH 2.750 HbA1c 5.2% Patient was full code during admission. Time Spent with Patient Time attestation: Total time spent providing and/or coordinating discharge services: Exam Const: General: cooperative and no acute distress Resp: Effort & Inspection: normal respiratory effort Auscultation: clear to auscultation bilaterally Cardio: Rate: regular rate Rhythm: regular rhythm Heart sounds: S1 normal heart sound present and S2 normal heart sound present GI: GI Palp: No abdominal tenderness Auscultation: normal bowel sounds DS: Data Data Completed and Pending Labs on day of discharge: Labs from last 24 hours 03/24/24 03/24/24 10:00 03:39 APTT 65.4 H Hemoglobin A1c 5.2 TSH 2.750 Discharge Plan Discharge Attending physician on discharge: Ruth Haley Consulting providers: Dc Sahni Discharging Clinician: Ruth Haley Patient Disposition: Home, Self-Care Activity: february shower Diet: heart healthy Patient Instructions: Antibiotic Form, Aspirin (By mouth), Atorvastatin (By mouth), Ticagrelor (By mouth), Chest Pain (DC), Cardiac Rehabilitation (DC), Coronary Intravascular Stent Placement (DC), After Radial Heart Catheterization (GEN) Stand Alone Forms: General Discharge Information Follow-up/Referrals: [facility]
== END 2024-03-25 11:43 | disposition home or self-care (01) | DRG 322 ==
LOC: ANHED 22:36 → ANHIMU 23:14
PROVIDERS: Emergency Medicine; Internal Medicine; Admitting Provider Internal Medicine; Emergency Provider Student in an Organized Health Care Education/Training Program; PCP Family Medicine; Visit Provider General Practice
PROC: 4A023N7 Measurement of Cardiac Sampling and Pressure, Left Heart, Percutaneous Approach (ICD-10-PCS; CPT 93452; principal; 2024-03-24 12:30)
PROC: 4A023N7 Measurement of Cardiac Sampling and Pressure, Left Heart, Percutaneous Approach (ICD-10-PCS; 2024-03-24 12:30)
PROC: 4A023N7 Measurement of Cardiac Sampling and Pressure, Left Heart, Percutaneous Approach (ICD-10-PCS; 2024-03-24 12:30)
DX: I21.4 Non-ST elevation (NSTEMI) myocardial infarction (principal)
CPT/HCPCS: 36415; 71046; 80053; 80061; 83036; 83690; 84443; 84484; 85025; 85380; 85610; 85730; 92978; 93005; 93306; 93458; 96365; 99285; A9270; C1725; C1753; C1769; C1874; C1887; C9600; J0583; J1644; J2250; J2305; J3010; J7030; J7040

== ENCOUNTER 2025-10-25 19:24 | Emergency (ER) | payer OTHER, SELFPAY ==
--- NOTE | ~2025-10-25 | XR_ITS ---
XR chest 1V INDICATION:. 50 years Male FB sensation COMPARISON: None FINDINGS: A single view of the chest demonstrates normal heart size. The lungs are clear. There is no evidence of pneumothorax or pleural effusion. IMPRESSION: No acute pulmonary findings. Reviewed, dictated and finalized at location S. ON RAILS ENGINEER
--- NOTE | ~2025-10-25 | XR_ITS ---
XR soft tissue neck INDICATION: FB sensation COMPARISON: None. FINDINGS: Frontal and lateral views of the soft tissues of the neck were performed. The airway is widely patent. The prevertebral soft tissues are unremarkable. There is no adenoidal or tonsillar hypertrophy. The epiglottis is unremarkable. There is no radiopaque foreign body. No bony abnormalities are seen. IMPRESSION: Normal soft tissue neck series. Reviewed, dictated and finalized at location S. CAL MANAGEMENT SPECIALIST
[2025-10-25 19:28] VITALS: BP 166/77; PULSE 53; RESP 20; TEMP 36.7; O2SAT 100
--- NOTE | 2025-10-25 20:53 | PC.NURSE ---
pt is refusing dexamethasone until xray reading is back.
--- NOTE | 2025-10-25 20:56 | ED.SKABFB ---
HPI - Skin/Abscess/Foreign Bdy General Chief complaint: Skin/Abscess/Foreign Body Stated complaint: foreign body throat Time Seen by Provider: 10/25/25 20:34 Source: patient and family Mode of arrival: ambulatory Limitations: no limitations History of Present Illness HPI narrative: Patient presents with a foreign body/globus sensation in his throat. He was drinking from a straw at a restaurant when he developed this sensation. He initially thought it was ice that was caught in his throat he thought it would melt however it has not gone away. He denies any shortness of breath or difficulty swallowing however he is having pain with swallowing than swallowing does increase the pain in general. The pain he experiences is not at his posterior oropharynx but rather the left of her is neck near the base. He denies any chest pain. He is not on anticoagulation but does take aspirin for history of stent. Last oral intake was at 6:30 p.m.. He notes that alternatively considered that that might represent a small piece of aluminum foil for example since he had been drinking iced tea Related Data Allergies Allergy/AdvReac Type Severity Reaction Status Date / Time Dairy Allergy Mild breathing Uncoded 06/08/25 16:01 problems PMFSH Past Medical History Medical History Elevated blood pressure reading without diagnosis of hypertension Mixed hyperlipidemia Atherosclerotic heart disease of [place] coronary artery without angina pectoris Encounter for screening colonoscopy Surgical History Surgical History H/O heart artery stent Social History Social History Smoking status: Never smoker Alcohol intake: current Drinks per week: 1 Substance use: never Substance use type: does not use Lack of Transportation: No Lack of Food: Never True Current Housing: I Have Housing Concerned About Future Housing: No Difficulty Paying Gas/Electric Bills: No Difficulty Paying for Meds: No Currently Unemployed: No Education: Master's Degree or Higher Difficulty w/ Childcare or Family Care: No Living arrangements: with family Occupation/Education: occupation Gender identity (if verbalized by the patient): Male Sexual Orientation (if Verbalized by the Patient): Straight or Heterosexual Spiritual care concerns: No Exam Narrative: GENERAL: Well-appearing, well-nourished, and in no acute distress. HEAD: Normocephalic, atraumatic. EYES: Non injected, non icteric ENT: Nares clear, no rhinorrhea or epistaxis. Gross auditory acuity intact. Normal posterior oropharynx without hyperemia or bleeding. Uvula midline. No tonsillar hypertrophy swelling or exudate. NECK: Supple. No meningismus. Trachea Midline. No crepitus on palpation. CHEST: Speaking in full sentences. No respiratory distress. HEART: Bradycardic rate and rhythm. . ABDOMEN: Soft, nondistended. No rigidity or guarding. Not peritoneal EXTREMITIES: Normal range of motion. SKIN: Warm, dry, no rash. NEURO: No focal deficits. Alert and oriented. Answering questions. Following commands. Normal speech without aphasia or dysarthria. No dysphonia. PSYCH: Normal mood and affect. Course Vital Signs Vital signs: Vital Signs Temperature 98.1 F 10/25/25 19:28 Pulse Rate 53 L 10/25/25 19:28 Respiratory Rate 20 10/25/25 19:28 Blood Pressure 166/77 H 10/25/25 19:28 Pulse Oximetry 100 10/25/25 19:28 Oxygen Delivery Room Air 10/25/25 19:28 Temperature 98 F 10/25/25 22:26 Pulse Rate 58 L 10/25/25 22:26 Respiratory Rate 16 10/25/25 22:26 Blood Pressure 145/72 H 10/25/25 22:26 Pulse Oximetry 100 10/25/25 22:26 Oxygen Delivery Room Air 10/25/25 19:28 [facility] Narrative Medical decision making narrative: Patient presents with foreign body/globus sensation in his throat/neck which he developed after drinking from a straw. In the emergency department he is afebrile with vital signs that show hypertension and bradycardia. Plain films negative as below. Dexamethasone ordered for soft tissue swelling. Labs are ordered in anticipation of CT soft tissue neck but patient declines when nurse goes to obtain these. He states he is feeling improved and would prefer to be discharged. Advised follow up and told to return to ED if new/worsening symptoms. Differential Diagnosis Differential Diagnosis: foreign body esophagus; foreign body trachea; irritation; considered perforation Imaging Data Attestation: I personally reviewed and interpreted this imaging study as follows: My impression: Dental fillings. No distict radio-opaque FB on my independent interpretation of neck/soft tissue imaging Radiologist's impression: ITS Impressions Chest X-Ray 10/25/25 20:59 IMPRESSION: No acute pulmonary findings. Soft Tissue Neck X-Ray 10/25/25 21:30 IMPRESSION: Normal soft tissue neck series. Discharge Plan Discharge Clinical Impression: Globus sensation Patient Disposition: Home Condition: Stable Instructions: Antibiotic Form, Foreign Body in the Pharynx (ED), Foreign Body Ingestion (ED) Additional Instructions: Maintain your hydration. Follow-up with your primary care physician. Return to the emergency department with any new or worsening symptoms. Continue taking your medications as prescribed. Patient Language: Panamanian Prescriptions: No Action atorvastatin [Lipitor] 40 mg tablet 40 mg PO DAILY Qty: 90 1RF aspirin 81 mg Tablet,Delayed Release (Dr/Ec) 81 mg PO QAM Qty: 30 0RF losartan 50 mg tablet 50 mg PO DAILY Qty: 90 1RF Follow-up/Referrals: Augustin Hewitt MD [Primary Care Provider, Family Practice] Stand Alone Forms: Work/School Release IP Time of Disposition: 22:07
--- NOTE | 2025-10-25 22:01 | PC.NURSE ---
This RN went in to pt. room to draw ordered labs and start ordered IV. Pt. states that the feeling in his throat has improved and he is less agitated. Pt. states he does not want the ordered additional imaging at this time and would like to go home. Dr. Robb notified. Pt. airway is patent, voice is clear. Breathing equal and unlabored.
[2025-10-25 22:26] VITALS: BP 145/72; PULSE 58; RESP 16; TEMP 36.6; O2SAT 100
== END 2025-10-25 22:27 | disposition home or self-care (01) ==
PROVIDERS: Emergency Provider Student in an Organized Health Care Education/Training Program; PCP Family Medicine
DX: R09.A2 Foreign body sensation, throat (principal); E78.2 Mixed hyperlipidemia; I25.10 Atherosclerotic heart disease of native coronary artery without angina pectoris; Z95.5 Presence of coronary angioplasty implant and graft
CPT/HCPCS: 70360; 71045; 99284